=== PATIENT | female | born 1975 | race Caucasian/White ===

== ENCOUNTER → 2018-06-02 | Outpatient (CLI) | payer OTHER ==
--- NOTE | 2018-06-02 15:53 | RAD ---
3 view study of the second digit of the left hand Clinical indications: Injury and swelling. FINDINGS: No acute fracture or dislocation or osteolytic process is seen. IMPRESSION: No acute osseous abnormality. Electronically signed by: Isidro Pineda MD (06/02/2018 3:49 PM) [facility]
== END | disposition home or self-care (01) ==
LOC: PMG 09:37
PROVIDERS: ATTEND Physician Assistant
DX: S69.82XA Other specified injuries of left wrist, hand and finger(s), initial encounter (principal); M79.89 Other specified soft tissue disorders; X58.XXXA Exposure to other specified factors, initial encounter; Y93.89 Activity, other specified; Y92.89 Other specified places as the place of occurrence of the external cause; Y99.8 Other external cause status
CPT/HCPCS: 73140

== ENCOUNTER → 2019-07-30 | Outpatient (CLI) | payer OTHER ==
[2019-07-30 08:50] LABS: BASO % 1 % (0-3); EOS # 0.1 x10^3/uL (0.0-0.7); EOS % 1 % (0-3); HEMATOCRIT 41.4 % (36.0-47.0); HEMOGLOBIN 13.9 g/dL (12.0-15.5); LYMPH # 1.2 x10^3/uL (1.0-4.8); LYMPH % 23 % (24-48); MEAN CORPUSCULAR HEMOGLOBIN 34 pg (25-35); MEAN CORPUSCULAR HGB CONC 34 g/dL (31-37); MEAN CORPUSCULAR VOLUME 100 fL (79-100); MONO # 0.3 x10^3/uL (0.0-1.1); MONO % 6 % (0-9); NEUT # 3.4 x10^3uL (1.8-7.7); NEUT % 69 % (31-73); PLATELET COUNT 274 x10^3/uL (140-400); RED BLOOD COUNT 4.14 x10^6/uL (3.50-5.40); RED CELL DISTRIBUTION WIDTH 12.8 % (11.5-14.5)
[2019-07-30 09:09] LABS: ALBUMIN 4.1 g/dL (3.4-5.0); ALBUMIN/GLOBULIN RATIO 1.3 (1.0-1.7); CALCIUM 8.9 mg/dL (8.5-10.1); CREATININE 1.1 mg/dL (0.6-1.0); GFR 54.5; POTASSIUM 3.9 mmol/L (3.5-5.1); TOTAL BILIRUBIN 0.9 mg/dL (0.2-1.0); TOTAL PROTEIN 7.2 g/dL (6.4-8.2)
== END | disposition home or self-care (01) ==
LOC: PMG 07:47
PROVIDERS: ATTEND Family Medicine
DX: K92.1 Melena (principal)
CPT/HCPCS: 36415; 80053; 85025

== ENCOUNTER → 2019-08-02 | Outpatient (CLI) | payer OTHER ==
[~2019-08-02] MED LIST: IOHEXOL 240 MG/ML 50ML VIAL. ONE; IOHEXOL 240 MG/ML 50ML VIAL. PO ONE; IOHEXOL 300 MG/ML 75 ML VIAL. IV ONE
--- NOTE | 2019-08-02 11:11 | RAD ---
Examination: CT ABD PELV W/ORAL IV CONTRAST History: Nausea, vomiting, bloody stools Comparison/Correlation: None Findings: Axial images of the abdomen and pelvis were obtained following IV and oral contrast. Visualized lung bases are clear. Liver, spleen, pancreas, adrenal glands, and left kidney are normal. Right hydronephrosis and hydroureter are minimal without radiopaque obstructive lesion. Left collecting system is unremarkable. No bowel obstruction or extraluminal gas. No inflammatory changes about the cecum. Umbilical hernia containing omental fat. Circumferential wall thickening of the distal sigmoid colon and rectum is noted. Surrounding stranding is present. No loculated collection. Minimal diverticulosis is present. Bilateral fallopian tube implants are noted. Septated left adnexal cyst is present measuring up to 2.7 cm diameter. Degenerative views of the lumbar spine noted. Minimal retrolisthesis of L4 in relation to L5 is noted with concentric disc bulge. Concentric disc bulge at L5-S1 noted. Spinal canal stenosis at L5-S1 is present. Impression: Circumferential wall thickening and inflammatory changes involving the distal sigmoid colon or proximal rectum. Findings are concerning for colitis or possibly diverticulitis. No significant diverticulosis is seen however. No abscess collection or extraluminal gas. Septated left adnexal cyst. This is likely etiology. Consider interval follow-up in 16-20 weeks by ultrasound exam to assess stability. PQRS Compliance Statement: One or more of the following individualized dose reduction techniques were utilized for this examination: 1. Automated exposure control 2. Adjustment of the mA and/or kV according to patient size 3. Use of iterative reconstruction technique Electronically signed by: Danny Artis MD (08/02/2019 11:08 AM) [facility]
== END | disposition home or self-care (01) ==
LOC: CT 09:30
PROVIDERS: ATTEND Family Medicine
DX: K57.30 Diverticulosis of large intestine without perforation or abscess without bleeding (principal); N13.30 Unspecified hydronephrosis; N13.4 Hydroureter; K42.9 Umbilical hernia without obstruction or gangrene; E27.8 Other specified disorders of adrenal gland; M48.07 Spinal stenosis, lumbosacral region; M47.816 Spondylosis without myelopathy or radiculopathy, lumbar region
CPT/HCPCS: 74177; Q9966; Q9967

== ENCOUNTER → 2019-09-28 | Outpatient (CLI) | payer OTHER ==
[2019-09-28 12:28] LABS: BASO % 1 % (0-3); EOS % 0 % (0-3); HEMATOCRIT 42.9 % (36.0-47.0); HEMOGLOBIN 14.4 g/dL (12.0-15.5); LYMPH # 1.2 x10^3/uL (1.0-4.8); LYMPH % 22 % (24-48); MEAN CORPUSCULAR HEMOGLOBIN 33 pg (25-35); MEAN CORPUSCULAR HGB CONC 34 g/dL (31-37); MEAN CORPUSCULAR VOLUME 98 fL (79-100); MONO # 0.3 x10^3/uL (0.0-1.1); MONO % 6 % (0-9); NEUT # 3.8 x10^3uL (1.8-7.7); NEUT % 71 % (31-73); PLATELET COUNT 276 x10^3/uL (140-400); RED BLOOD COUNT 4.39 x10^6/uL (3.50-5.40); RED CELL DISTRIBUTION WIDTH 12.5 % (11.5-14.5); WHITE BLOOD COUNT 5.4 x10^3/uL (4.0-11.0)
[2019-09-28 12:38] LABS: ALBUMIN 4.1 g/dL (3.4-5.0); ALBUMIN/GLOBULIN RATIO 1.2 (1.0-1.7); CALCIUM 8.8 mg/dL (8.5-10.1); CREATININE 0.8 mg/dL (0.6-1.0); GFR 78.7; POTASSIUM 3.4 mmol/L (3.5-5.1); TOTAL BILIRUBIN 0.7 mg/dL (0.2-1.0); TOTAL PROTEIN 7.4 g/dL (6.4-8.2)
== END | disposition home or self-care (01) ==
LOC: PMG 11:12
PROVIDERS: ATTEND Family Medicine
DX: C18.9 Malignant neoplasm of colon, unspecified (principal)
CPT/HCPCS: 80053; 82378; 85025

== ENCOUNTER → 2019-10-28 | Outpatient (CLI) | payer OTHER ==
[2019-10-28 12:21] LABS: BASO % 1 % (0-3); EOS % 1 % (0-3); HEMATOCRIT 39.6 % (36.0-47.0); HEMOGLOBIN 13.4 g/dL (12.0-15.5); LYMPH # 1.3 x10^3/uL (1.0-4.8); LYMPH % 28 % (24-48); MEAN CORPUSCULAR HEMOGLOBIN 32 pg (25-35); MEAN CORPUSCULAR HGB CONC 34 g/dL (31-37); MEAN CORPUSCULAR VOLUME 96 fL (79-100); MONO # 0.3 x10^3/uL (0.0-1.1); MONO % 7 % (0-9); NEUT # 2.9 x10^3uL (1.8-7.7); NEUT % 64 % (31-73); PLATELET COUNT 297 x10^3/uL (140-400); RED BLOOD COUNT 4.14 x10^6/uL (3.50-5.40); RED CELL DISTRIBUTION WIDTH 12.6 % (11.5-14.5); WHITE BLOOD COUNT 4.6 x10^3/uL (4.0-11.0)
[2019-10-28 12:25] LABS: ALBUMIN 4.1 g/dL (3.4-5.0); ALBUMIN/GLOBULIN RATIO 1.5 (1.0-1.7); CALCIUM 8.8 mg/dL (8.5-10.1); CREATININE 0.9 mg/dL (0.6-1.0); GFR 68.7; POTASSIUM 3.8 mmol/L (3.5-5.1); TOTAL BILIRUBIN 0.7 mg/dL (0.2-1.0); TOTAL PROTEIN 6.9 g/dL (6.4-8.2)
== END | disposition home or self-care (01) ==
LOC: LAB 11:11
PROVIDERS: ATTEND Internal Medicine Hematology & Oncology
DX: C18.7 Malignant neoplasm of sigmoid colon (principal)
CPT/HCPCS: 36415; 80053; 82378; 85025

== ENCOUNTER → 2019-12-03 | Outpatient (CLI) | payer OTHER ==
[2019-12-03 13:12] LABS: BASO % 0 % (0-3); EOS # 0.1 x10^3/uL (0.0-0.7); EOS % 1 % (0-3); HEMATOCRIT 38.4 % (36.0-47.0); HEMOGLOBIN 13.1 g/dL (12.0-15.5); LYMPH # 1.9 x10^3/uL (1.0-4.8); LYMPH % 17 % (24-48); MEAN CORPUSCULAR HEMOGLOBIN 32 pg (25-35); MEAN CORPUSCULAR HGB CONC 34 g/dL (31-37); MEAN CORPUSCULAR VOLUME 95 fL (79-100); MONO # 0.4 x10^3/uL (0.0-1.1); MONO % 4 % (0-9); NEUT # 8.4 x10^3uL (1.8-7.7); NEUT % 78 % (31-73); PLATELET COUNT 174 x10^3/uL (140-400); RED BLOOD COUNT 4.04 x10^6/uL (3.50-5.40); RED CELL DISTRIBUTION WIDTH 13.3 % (11.5-14.5); WHITE BLOOD COUNT 10.8 x10^3/uL (4.0-11.0)
[2019-12-03 13:26] LABS: ALBUMIN 4.1 g/dL (3.4-5.0); ALBUMIN/GLOBULIN RATIO 1.5 (1.0-1.7); CALCIUM 8.5 mg/dL (8.5-10.1); CREATININE 0.9 mg/dL (0.6-1.0); GFR 68.7; POTASSIUM 3.2 mmol/L (3.5-5.1); TOTAL BILIRUBIN 0.3 mg/dL (0.2-1.0); TOTAL PROTEIN 6.8 g/dL (6.4-8.2)
[2019-12-03 13:52] LABS: % BANDS 16 % (0-9); % BASOS 0 % (0-3); % EOS 1 % (0-5); % LYMPHS 21 % (24-48); % MONOS 5 % (0-10); % PROS 6 % (0-0); % SEGS 51 % (35-66); PLT ESTIMATE ADEQUATE (ADEQUATE)
[2019-12-03 13:53] LABS: PLATELET CLUMP PRESENT
== END | disposition home or self-care (01) ==
LOC: LAB 12:44
PROVIDERS: ATTEND Internal Medicine Hematology & Oncology
DX: C18.7 Malignant neoplasm of sigmoid colon (principal)
CPT/HCPCS: 36415; 80053; 82378; 85007; 85025

== ENCOUNTER → 2020-01-14 | Outpatient (CLI) | payer OTHER ==
[2020-01-07 13:02] VITALS: BP 121/63
[2020-01-14 13:47] LABS: BASO # 0.1 x10^3/uL (0.0-0.2); BASO % 1 % (0-3); EOS % 0 % (0-3); HEMATOCRIT 36.5 % (36.0-47.0); HEMOGLOBIN 12.3 g/dL (12.0-15.5); LYMPH # 1.5 x10^3/uL (1.0-4.8); LYMPH % 15 % (24-48); MEAN CORPUSCULAR HEMOGLOBIN 32 pg (25-35); MEAN CORPUSCULAR HGB CONC 34 g/dL (31-37); MEAN CORPUSCULAR VOLUME 95 fL (79-100); MONO # 0.8 x10^3/uL (0.0-1.1); MONO % 8 % (0-9); NEUT # 7.5 x10^3uL (1.8-7.7); NEUT % 76 % (31-73); PLATELET COUNT 69 x10^3/uL (140-400); RED BLOOD COUNT 3.83 x10^6/uL (3.50-5.40); RED CELL DISTRIBUTION WIDTH 16.7 % (11.5-14.5); WHITE BLOOD COUNT 9.9 x10^3/uL (4.0-11.0)
[2020-01-14 14:01] LABS: ALBUMIN 3.9 g/dL (3.4-5.0); ALBUMIN/GLOBULIN RATIO 1.3 (1.0-1.7); CALCIUM 8.7 mg/dL (8.5-10.1); CREATININE 0.7 mg/dL (0.6-1.0); GFR 91.8; POTASSIUM 3.2 mmol/L (3.5-5.1); TOTAL BILIRUBIN 0.4 mg/dL (0.2-1.0); TOTAL PROTEIN 6.9 g/dL (6.4-8.2)
[2020-01-14 14:49] LABS: % ATYL 3 % (0-0); % BANDS 5 % (0-9); % LYMPHS 18 % (24-48); % METAS 1 % (0-0); % MONOS 4 % (0-10); % SEGS 69 % (35-66)
[2020-01-14 14:51] LABS: PLT ESTIMATE DECREASED (ADEQUATE); TOXIC GRANULATION PRESENT; TOXIC VACUOLATION PRESENT
[2020-01-14 14:52] LABS: POLYCHROMASIA PRESENT; TEAR DROP CELLS FEW
== END ==
LOC: LAB 12:53
PROVIDERS: ATTEND Internal Medicine Hematology & Oncology
DX: C18.7 Malignant neoplasm of sigmoid colon (principal)
CPT/HCPCS: 36415; 80053; 82378; 85007; 85025

== ENCOUNTER → 2020-01-17 | Outpatient (CLI) | payer OTHER ==
[2020-01-07 13:02] VITALS: BP 121/63
[2020-01-17 13:01] LABS: BASO % 0 % (0-3); EOS % 0 % (0-3); HEMATOCRIT 34.4 % (36.0-47.0); HEMOGLOBIN 11.5 g/dL (12.0-15.5); LYMPH # 1.8 x10^3/uL (1.0-4.8); LYMPH % 13 % (24-48); MEAN CORPUSCULAR HEMOGLOBIN 32 pg (25-35); MEAN CORPUSCULAR HGB CONC 34 g/dL (31-37); MEAN CORPUSCULAR VOLUME 96 fL (79-100); MONO # 0.9 x10^3/uL (0.0-1.1); MONO % 6 % (0-9); NEUT # 11.8 x10^3uL (1.8-7.7); NEUT % 81 % (31-73); PLATELET COUNT 63 x10^3/uL (140-400); RED BLOOD COUNT 3.57 x10^6/uL (3.50-5.40); RED CELL DISTRIBUTION WIDTH 16.9 % (11.5-14.5); WHITE BLOOD COUNT 14.5 x10^3/uL (4.0-11.0)
[2020-01-17 15:14] LABS: % BANDS 5 % (0-9); % LYMPHS 9 % (24-48); % METAS 2 % (0-0); % MONOS 7 % (0-10); % MYELOS 1 % (0-0); % SEGS 76 % (35-66)
[2020-01-17 15:16] LABS: PLT ESTIMATE DECREASED (ADEQUATE)
== END | disposition home or self-care (01) ==
LOC: LAB 12:19
PROVIDERS: ATTEND Internal Medicine Hematology & Oncology
DX: C18.7 Malignant neoplasm of sigmoid colon (principal)
CPT/HCPCS: 36415; 85007; 85025

== ENCOUNTER → 2020-01-19 | Outpatient (CLI) | payer OTHER ==
[2020-01-07 13:02] VITALS: BP 121/63
[~2020-01-19] MED LIST changes: -IOHEXOL 240 MG/ML 50ML VIAL. PO ONE
--- NOTE | 2020-01-19 09:33 | RAD ---
Examination: CT CHEST ABD PELVIS W/CONTRAST History: Colon cancer follow-up. Elevated liver function enzymes. Comparison/Correlation: 08/02/2019 CT abdomen and pelvis with IV and oral contrast, 10/31/2019 CT chest, abdomen, pelvis with contrast Findings: Axial images of the chest, abdomen, and pelvis were obtained following IV contrast. Sagittal and coronal reformatted images were provided. Oral contrast was administered. Left-sided infusion port catheter tip terminates within the superior vena cava. Right thyroid lower pole low-attenuation lesion which is small in size is stable. No enlarged thoracic lymph nodes. Small groundglass opacity at the anterior aspect of the right upper subcarinal region measuring up to 2 cm x 1.2 cm is present without significant change. Posterior to the left hilum, there is a 0.9 cm x 0.54 cm mildly spiculated nodule which has decreased in size since 10/29/2019 CT by 0.45 cm in the transverse plane and decreased by 0.35 cm anteroposterior. Right posterior midthoracic pleural-based nodule measuring 0.3 cm diameter is present on axial image 61 and this is decreased by 0.15 cm since 10/29/2019. Punctate pleural-based nodule which may have constipation with evidence present more inferiorly on axial image 80 and since has remained stable. 0.4 cm diameter nodule on axial image 84 is stable. Punctate pulmonary nodules previously described are stable. No new pulmonary nodule or mass. No infiltrate or effusion. No enlarged thoracic lymph nodes. The tracheobronchial tree is unremarkable. There is, pancreas, adrenal glands, and kidneys are normal. No large abdominal or pelvic lymph nodes. Spleen has a longitudinal length of 12.3 cm and this is increased in size since previous exam of 4 cm. No focal mass identified. No enlarged abdominal lymph nodes. No ascites or pelvic fluid. Right periumbilical hernia defect containing omental fat is present small defect measuring 0.6 cm transverse involving the right paraumbilical ventral wall noted. Large quantity of stool is present in the colon. No bowel obstruction. No extraluminal gas. Bilateral adnexal follicles are present including on the right with appearance of a septated follicle measuring 2.5 cm x 2.1 cm. Single thin septation appears to be present. Uterus is unremarkable. Bilateral fallopian tube implants are evident. Impression: Decreased size of pulmonary nodules. No suspicious new nodule or mass. No new infiltrate. Groundglass opacity anterior right upper lung field is stable. Attention on interval follow-up examination is recommended to assess stability. Increased size of the spleen and the interval. No focal mass. The spleen is not especially enlarged. Correlation clinically required. Small right periumbilical hernia is omental. Right adnexal cyst with thin septation is present in the interval. This may physiologic. Left adnexal septated cyst as decrease in size or resolved since 07/30/2019. Consider interval follow-up ultrasound in 16 weeks to assess to assess stability.. PQRS Compliance Statement: One or more of the following individualized dose reduction techniques were utilized for this examination: 1. Automated exposure control 2. Adjustment of the mA and/or kV according to patient size 3. Use of iterative reconstruction technique Electronically signed by: Danny Artis MD (01/19/2020 9:31 AM) [id number]
== END | disposition home or self-care (01) ==
LOC: CT 07:18
PROVIDERS: ATTEND Internal Medicine Hematology & Oncology
DX: C18.7 Malignant neoplasm of sigmoid colon (principal); K42.9 Umbilical hernia without obstruction or gangrene; R91.8 Other nonspecific abnormal finding of lung field; N83.8 Other noninflammatory disorders of ovary, fallopian tube and broad ligament
CPT/HCPCS: 71260; 74177; Q9967

== ENCOUNTER → 2020-01-24 | Outpatient (CLI) | payer OTHER ==
[2020-01-07 13:02] VITALS: BP 121/63
[2020-02-10 07:44] LABS: HEMATOCRIT 37.7 % (36.0-47.0); HEMOGLOBIN 12.5 g/dL (12.0-15.5); MEAN CORPUSCULAR HEMOGLOBIN 33 pg (25-35); MEAN CORPUSCULAR HGB CONC 33 g/dL (31-37); MEAN CORPUSCULAR VOLUME 98 fL (79-100); PLATELET COUNT 163 x10^3/uL (140-400); RED BLOOD COUNT 3.84 x10^6/uL (3.50-5.40); RED CELL DISTRIBUTION WIDTH 17.8 % (11.5-14.5); WHITE BLOOD COUNT 5.9 x10^3/uL (4.0-11.0)
[2020-02-10 07:45] LABS: BASO # 0.1 x10^3/uL (0.0-0.2); BASO % 1 % (0-3); EOS % 0 % (0-3); LYMPH # 1.3 x10^3/uL (1.0-4.8); LYMPH % 21 % (24-48); MONO # 0.6 x10^3/uL (0.0-1.1); MONO % 10 % (0-9); NEUT % 68 % (31-73)
[2020-02-10 07:54] LABS: ALBUMIN 3.6 g/dL (3.4-5.0); CREATININE 0.8 mg/dL (0.6-1.0); GFR 78.7; POTASSIUM 3.9 mmol/L (3.5-5.1); TOTAL BILIRUBIN 0.5 mg/dL (0.2-1.0); TOTAL PROTEIN 7.2 g/dL (6.4-8.2)
== END | disposition home or self-care (01) ==
LOC: LAB 08:40
PROVIDERS: ATTEND Internal Medicine Hematology & Oncology
DX: C18.7 Malignant neoplasm of sigmoid colon (principal)
CPT/HCPCS: 36415; 80053; 85025

== ENCOUNTER → 2020-01-24 | Outpatient (CLI) | payer OTHER ==
[2020-01-07 13:02] VITALS: BP 121/63
--- NOTE | 2020-01-24 08:58 | RAD ---
EXAM: CHEST PA LATERAL INDICATION: Chest congestion. Undergoing treatment for colon cancer.. TECHNIQUE: PA and lateral views COMPARISON: Chest CT of 01/19/2020 FINDINGS: Stable tunneled left subclavian chest port. The heart size is normal. The great vessels appear unremarkable. There is no hilar or mediastinal mass. The lungs are clear. There is no pleural effusion or pneumothorax. There are no significant osseous abnormalities. IMPRESSION: No active cardiopulmonary disease. Electronically signed by: Rani Rojas MD (01/24/2020 8:55 AM) [id number]
== END ==
LOC: PMG 08:15
PROVIDERS: ATTEND Physician Assistant Medical
DX: R09.89 Other specified symptoms and signs involving the circulatory and respiratory systems (principal)
CPT/HCPCS: 71046

== ENCOUNTER → 2020-06-20 | Outpatient (CLI) | payer OTHER ==
[2020-01-07 13:02] VITALS: BP 121/63
[~2020-06-20] MED LIST changes: +IOHEXOL 240 MG/ML 50ML VIAL. PO ONE
--- NOTE | 2020-06-20 10:59 | RAD ---
CT CHEST ABD PELVIS W/CONTRAST Indication: Colon cancer, colon resection in 2019 Technique: Postcontrast CT imaging was performed of the chest, abdomen, pelvis, multiplanar reconstruction images submitted. Oral contrast was also given. One or more of the following individualized dose reduction techniques were utilized for this examination: 1. Automated exposure control 2. Adjustment of the mA and/or kV according to patient size 3. Use of iterative reconstruction technique. Comparison: January 19, 2020 CHEST: Findings: Dominant spiculated noncalcified superior left lower lobe nodule image 52 series 4 is larger up to 1.3 cm versus previously about 0.8 cm. There are multiple other smaller noncalcified bilateral pulmonary nodules, multiple new nodules in interval. Dominant subpleural right lower lobe nodule about 1 cm image 63 series 4 previously measured about 0.8 cm. 0.8 cm right lower lobe nodule image 79 previously measured about 0.4 cm. There is no pericardial or pleural fluid or pneumothorax. There is no lobar infiltrate. Thoracic aortic caliber is within normal limits, no dissection flap. There are small mediastinal nodes as seen previously. There is left subclavian port catheter, tip coursing into the superior vena cava. IMPRESSION: 1. There are larger and new pulmonary nodules of the bilateral hemithoraces, evidence of metastatic disease. Abdomen pelvis FINDINGS: Spleen is again enlarged although now more heterogeneous in appearance. As seen on image 18 series 7, there is a small 0.4 cm hypodense lesion of the left lobe of the liver not clearly identified on previous exam. There is also focus of subtle hypodensity of the left lobe of liver anterior to the gallbladder fossa such as seen on coronal image 17 series 8, sagittal image 68 series 9, and axial image 38 series 7 measuring about 1.5 cm transverse by 1.2 cm AP by 1.1 cm cc. There is no adrenal nodularity. No new abnormality is identified of the pancreas. Both kidneys enhance, no hydronephrosis. Gallbladder is present without intraluminal abnormality T2. There is fairly prominent retained stool of the mid transverse colon through the descending and sigmoid colon. There is increased heterogeneity and enlargement of the left ovary also with areas of associated cystic change, largest focus of cystic change estimated about 2.9 cm. There is also small hypodense lesion of the right ovary about 1.6 m although stable to less apparent. There are tubal occlusion devices bilaterally. There is fascial defect near the umbilicus about 3.9 cm transverse, also extent of small fat-containing hernia to the right of the umbilicus with neck about 0.5 cm transverse without internal bowel. There is L4-5 degenerative disc disease with vacuum phenomenon. There is very minimal posterior subluxation L4 relative to L5, also disc osteophyte complex and bulge at this level. There is multilevel lumbar facet degenerative change. There is degree of lateral recess stenosis bilaterally at L4-5. There is at least moderate narrowing of the right L4-5 and L5-S1 neural foramina mostly from facets. IMPRESSION: 1.There are now some subtle hypodense foci of the liver concerning for hepatic metastases especially given the new and larger lung nodules. 2. There is increased heterogeneity and enlargement of the left ovary with areas of cystic change although foci of solid density, ovarian mass possible. 3. There is again enlargement of the spleen, now more heterogeneous appearance, cannot exclude underlying mass. 4. There is small fat-containing periumbilical hernia. Electronically signed by: Alfa Sloan MD (06/20/2020 10:56 AM) [id number]
== END | disposition home or self-care (01) ==
LOC: CT 07:51
PROVIDERS: ATTEND Internal Medicine Hematology & Oncology
DX: C18.9 Malignant neoplasm of colon, unspecified (principal); R91.8 Other nonspecific abnormal finding of lung field; R16.1 Splenomegaly, not elsewhere classified; K76.9 Liver disease, unspecified; M47.816 Spondylosis without myelopathy or radiculopathy, lumbar region; M48.061 Spinal stenosis, lumbar region without neurogenic claudication; M51.36 Other intervertebral disc degeneration, lumbar region; M25.78 Osteophyte, vertebrae; N83.292 Other ovarian cyst, left side; N83.8 Other noninflammatory disorders of ovary, fallopian tube and broad ligament; K42.9 Umbilical hernia without obstruction or gangrene; Z90.49 Acquired absence of other specified parts of digestive tract
CPT/HCPCS: 71260; 74177; Q9966; Q9967

== ENCOUNTER → 2020-08-11 | Outpatient (CLI) | payer OTHER ==
[2020-01-07 13:02] VITALS: BP 121/63
== END | disposition home or self-care (01) ==
LOC: LAB 15:01
PROVIDERS: ATTEND Internal Medicine Cardiovascular Disease
DX: R19.7 Diarrhea, unspecified (principal); Z20.828 Contact with and (suspected) exposure to other viral communicable diseases
CPT/HCPCS: U0003-CS

== ENCOUNTER → 2020-09-19 | Outpatient (CLI) | payer OTHER ==
[2020-01-07 13:02] VITALS: BP 121/63
[~2020-09-19] MED LIST changes: -IOHEXOL 240 MG/ML 50ML VIAL. PO ONE
--- NOTE | 2020-09-19 18:03 | RAD ---
EXAM: CT CHEST, ABDOMEN, AND PELVIS WITH CONTRAST INDICATION: Colon cancer, restaging. COMPARISON: CT chest abdomen and pelvis 06/20/[address] abdomen pelvis 09/12/2020 TECHNIQUE: Helical CT imaging performed of the chest, abdomen and pelvis after the administration of 75 mL Omnipaque 300 intravenous contrast. Sagittal and coronal reformats were obtained. One or more of the following individualized dose reduction techniques were utilized for this examination: 1. Automated exposure control 2. Adjustment of the mA and/or kV according to patient size 3. Use of iterative reconstruction technique. FINDINGS: CHEST: Thyroid gland and thoracic inlet: Normal. Heart and great vessels: The heart is normal in size. Thoracic aorta is normal in caliber. Pulmonary arteries are clear. Mediastinum and mirlande: No lymphadenopathy. Lungs and pleura: Multiple bilateral pulmonary nodules are redemonstrated. The largest is a 1.2 cm pulmonary nodule in the superior segment of the left lower lobe, unchanged. Most of the other nodules range in size from 3 to 7 mm and are unchanged. No definite new pulmonary nodules. No pleural effusion. Chest wall and axillae: Unremarkable. No axillary lymphadenopathy.. Bones: No acute osseous abnormality in the chest. ABDOMEN AND PELVIS: Liver: The vague, approximately 1.2 cm linear hypodensity in segment 4 of the liver is unchanged and nonspecific. No new liver lesion. Hepatic, portal, superior mesenteric, and splenic veins are patent. Gallbladder/Biliary Tree: Normal. Pancreas: Carlos. Spleen: Normal. Adrenal Glands: Normal. Kidneys/Ureters/Bladder: Kidneys are normal in size and enhance symmetrically. No hydronephrosis. The proximal and mid ureters are normal. Left distal ureter is not well visualized. The bladder is decompressed. Reproductive Organs: Uterus is normal. A multilobulated left adnexal mass has increased in size, now measuring overall approximately 14.5 x 11.1 x 8.8 cm, previously 10.0 x 6.8 x 7.4 cm. The largest component of this is cystic and homogeneous in appearance. A more heterogeneous complex component of the mass posteriorly on the left appears to have areas of enhancing soft tissue versus hemorrhage. The right ovary is grossly normal in appearance. Stomach, small bowel, and colon: There are surgical changes of the rectum. The rest of the colon is normal in appearance. Stomach and small bowel are normal. Vasculature: Abdominal aorta and inferior vena cava are normal. Lymph Nodes: No lymphadenopathy. Peritoneum and retroperitoneum: Decreased ascites, with residual trace free fluid in the pelvis. Bones: No acute osseous abnormality there is degenerative disc disease and minimal listhesis at L4-L5. IMPRESSION: 1. Increased size of multilobulated complex cystic and solid left adnexal mass, now approximately 15 cm in diameter. There may be hemorrhagic components within the mass. This could be metastatic disease versus primary malignancy. 2. Unchanged bilateral pulmonary nodules. No new metastatic disease in the abdomen and pelvis. 3. Decreased, now trace fluid in the abdomen and pelvis. Electronically signed by: Paige uW MD (09/19/2020 6:00 PM) [id number]
== END ==
LOC: CT 07:52
PROVIDERS: ATTEND Internal Medicine Hematology & Oncology
DX: C18.7 Malignant neoplasm of sigmoid colon (principal); R91.8 Other nonspecific abnormal finding of lung field; M51.36 Other intervertebral disc degeneration, lumbar region; R18.8 Other ascites
CPT/HCPCS: 71260; 74177; Q9967

== ENCOUNTER → 2020-09-22 | Outpatient (CLI) | payer OTHER ==
[2020-01-07 13:02] VITALS: BP 121/63
[2020-09-23 05:08] LABS: CA 125 302.3 U/mL (0.0-38.1)
== END ==
LOC: LAB 12:59
PROVIDERS: ATTEND Obstetrics & Gynecology
DX: N83.8 Other noninflammatory disorders of ovary, fallopian tube and broad ligament (principal)
CPT/HCPCS: 36415; 86301; 86304; 86305

== ENCOUNTER → 2020-12-27 | Outpatient (CLI) | payer OTHER ==
[2020-01-07 13:02] VITALS: BP 121/63
[2020-12-27 13:54] LABS: BASO % 1 % (0-3); EOS % 1 % (0-3); HEMATOCRIT 40.4 % (36.0-47.0); HEMOGLOBIN 13.5 g/dL (12.0-15.5); LYMPH # 1.5 x10^3/uL (1.0-4.8); LYMPH % 39 % (24-48); MEAN CORPUSCULAR HEMOGLOBIN 32 pg (25-35); MEAN CORPUSCULAR HGB CONC 33 g/dL (31-37); MEAN CORPUSCULAR VOLUME 95 fL (79-100); MONO # 0.3 x10^3/uL (0.0-1.1); MONO % 8 % (0-9); NEUT # 1.9 x10^3uL (1.8-7.7); NEUT % 51 % (31-73); PLATELET COUNT 200 x10^3/uL (140-400); RED BLOOD COUNT 4.25 x10^6/uL (3.50-5.40); RED CELL DISTRIBUTION WIDTH 15.1 % (11.5-14.5); WHITE BLOOD COUNT 3.8 x10^3/uL (4.0-11.0)
[2020-12-27 14:24] LABS: ALBUMIN 4.4 g/dL (3.4-5.0); ALBUMIN/GLOBULIN RATIO 1.3 (1.0-1.7); CALCIUM 9.2 mg/dL (8.5-10.1); CREATININE 0.9 mg/dL (0.6-1.0); GFR 68.3; POTASSIUM 3.8 mmol/L (3.5-5.1); TOTAL BILIRUBIN 0.7 mg/dL (0.2-1.0); TOTAL PROTEIN 7.7 g/dL (6.4-8.2)
== END ==
LOC: LAB 12:48
PROVIDERS: ATTEND Internal Medicine Hematology & Oncology
DX: C18.7 Malignant neoplasm of sigmoid colon (principal); E55.9 Vitamin D deficiency, unspecified
CPT/HCPCS: 80053; 82306; 82378; 85025

== ENCOUNTER → 2021-01-25 | Outpatient (CLI) | payer OTHER ==
[2020-01-07 13:02] VITALS: BP 121/63
[2021-01-25 08:54] LABS: BASO % 1 % (0-3); EOS # 0.1 x10^3/uL (0.0-0.7); EOS % 2 % (0-3); HEMATOCRIT 35.7 % (36.0-47.0); HEMOGLOBIN 12.1 g/dL (12.0-15.5); LYMPH # 1.1 x10^3/uL (1.0-4.8); LYMPH % 31 % (24-48); MEAN CORPUSCULAR HEMOGLOBIN 33 pg (25-35); MEAN CORPUSCULAR HGB CONC 34 g/dL (31-37); MEAN CORPUSCULAR VOLUME 97 fL (79-100); MONO # 0.3 x10^3/uL (0.0-1.1); MONO % 8 % (0-9); NEUT # 2.2 x10^3uL (1.8-7.7); NEUT % 59 % (31-73); PLATELET COUNT 174 x10^3/uL (140-400); RED BLOOD COUNT 3.68 x10^6/uL (3.50-5.40); WHITE BLOOD COUNT 3.7 x10^3/uL (4.0-11.0)
[2021-01-25 09:02] LABS: CALCIUM 8.9 mg/dL (8.5-10.1); CREATININE 0.9 mg/dL (0.6-1.0); GFR 68.3; POTASSIUM 3.9 mmol/L (3.5-5.1)
[2021-01-25 09:07] LABS: ALBUMIN 3.7 g/dL (3.4-5.0); ALBUMIN/GLOBULIN RATIO 1.2 (1.0-1.7); TOTAL BILIRUBIN 0.7 mg/dL (0.2-1.0); TOTAL PROTEIN 6.7 g/dL (6.4-8.2)
== END ==
LOC: LAB 08:13
PROVIDERS: ATTEND Internal Medicine Hematology & Oncology
DX: C18.7 Malignant neoplasm of sigmoid colon (principal)
CPT/HCPCS: 36591; 80053; 82378; 85025

== ENCOUNTER → 2021-01-25 | Outpatient (CLI) | payer OTHER ==
[~2021-01-25] MED LIST changes: +HEPARIN PF 500 UNIT/5 ML DISP.SYRIN. IVP ONE; -IOHEXOL 240 MG/ML 50ML VIAL. ONE; -IOHEXOL 300 MG/ML 75 ML VIAL. IV ONE
[2021-01-25 08:35] VITALS: BP 110/72
--- NOTE | 2021-01-25 08:36 | NUR ---
nursing note outpt pt ambulated to room 107 for outpt port flush and lab collection. vitals obtained. no complications. pt ambulated off unit. january radford.
== END | disposition home or self-care (01) ==
LOC: OPINF 08:12
PROVIDERS: ATTEND Internal Medicine Hematology & Oncology
DX: Z45.2 Encounter for adjustment and management of vascular access device (principal); C18.7 Malignant neoplasm of sigmoid colon
CPT/HCPCS: 96374; 96523

== ENCOUNTER → 2021-02-14 | Outpatient (CLI) | payer OTHER ==
[2020-01-07 13:02] VITALS: BP 121/63
[2021-02-14 14:23] LABS: BASO % 1 % (0-3); EOS # 0.1 x10^3/uL (0.0-0.7); EOS % 2 % (0-3); HEMATOCRIT 35.4 % (36.0-47.0); LYMPH # 1.6 x10^3/uL (1.0-4.8); LYMPH % 41 % (24-48); MEAN CORPUSCULAR HEMOGLOBIN 34 pg (25-35); MEAN CORPUSCULAR HGB CONC 34 g/dL (31-37); MEAN CORPUSCULAR VOLUME 100 fL (79-100); MONO # 0.3 x10^3/uL (0.0-1.1); MONO % 7 % (0-9); NEUT % 50 % (31-73); PLATELET COUNT 209 x10^3/uL (140-400); RED BLOOD COUNT 3.53 x10^6/uL (3.50-5.40); RED CELL DISTRIBUTION WIDTH 18.8 % (11.5-14.5); WHITE BLOOD COUNT 3.9 x10^3/uL (4.0-11.0)
[2021-02-14 16:54] LABS: ALBUMIN/GLOBULIN RATIO 1.4 (1.0-1.7); CALCIUM 9.1 mg/dL (8.5-10.1); GFR 60.5; POTASSIUM 4.2 mmol/L (3.5-5.1); TOTAL BILIRUBIN 0.4 mg/dL (0.2-1.0); TOTAL PROTEIN 6.9 g/dL (6.4-8.2)
== END ==
LOC: LAB 12:37
PROVIDERS: ATTEND Internal Medicine Hematology & Oncology
DX: C18.7 Malignant neoplasm of sigmoid colon (principal)
CPT/HCPCS: 36415; 80053; 82378; 85025

== ENCOUNTER → 2021-06-18 | Outpatient (CLI) | payer OTHER ==
[2020-01-07 13:02] VITALS: BP 121/63
[~2021-06-18] MED LIST changes: -HEPARIN PF 500 UNIT/5 ML DISP.SYRIN. IVP ONE; +IOHEXOL 240 MG/ML 50ML VIAL. ONE; +IOHEXOL 300 MG/ML 75 ML VIAL. IV ONE
[2021-06-18 10:33] LABS: ALBUMIN 4.1 g/dL (3.4-5.0); ALBUMIN/GLOBULIN RATIO 1.6 (1.0-1.7); CALCIUM 8.6 mg/dL (8.5-10.1); CREATININE 0.8 mg/dL (0.6-1.0); GFR 77.9; POTASSIUM 3.2 mmol/L (3.5-5.1); TOTAL BILIRUBIN 0.6 mg/dL (0.2-1.0); TOTAL PROTEIN 6.6 g/dL (6.4-8.2)
[2021-06-18 10:36] LABS: BASO % 1 % (0-3); EOS # 0.1 x10^3/uL (0.0-0.7); EOS % 2 % (0-3); HEMATOCRIT 37.8 % (36.0-47.0); LYMPH # 1.2 x10^3/uL (1.0-4.8); LYMPH % 40 % (24-48); MEAN CORPUSCULAR HEMOGLOBIN 32 pg (25-35); MEAN CORPUSCULAR HGB CONC 35 g/dL (31-37); MEAN CORPUSCULAR VOLUME 93 fL (79-100); MONO # 0.3 x10^3/uL (0.0-1.1); MONO % 9 % (0-9); NEUT # 1.5 x10^3uL (1.8-7.7); NEUT % 49 % (31-73); PLATELET COUNT 216 x10^3/uL (140-400); RED BLOOD COUNT 4.05 x10^6/uL (3.50-5.40); RED CELL DISTRIBUTION WIDTH 15.2 % (11.5-14.5); WHITE BLOOD COUNT 3.1 x10^3/uL (4.0-11.0)
--- NOTE | 2021-06-18 15:36 | RAD ---
EXAM: CT OF THE CHEST, ABDOMEN AND PELVIS WITH CONTRAST. HISTORY: Restaging colon cancer. TECHNIQUE: Computed tomography of the chest, abdomen and pelvis was performed after the intravenous a dministration of iodinated contrast. One or more of the following individualized dose reduction techn iques were utilized for this examination: 1. Automated exposure control. 2. Adjustment of the mA and/or kV according to patient size. 3. Use of iterative reconstruction technique. COMPARISON: 09/19/2020. FINDINGS: Bone windows reveal no suspicious lesions. A left hilar node measures 12 x 10 mm and is increased. There are no enlarged axillary or supraclavic ular nodes. There is no pleural or pericardial effusion. The heart is not enlarged. Many bilateral lung nodules are mostly slightly increased since the prior study. The largest in the l eft lower lobe posterior to the hilum measures 1.6 x 1.3 cm and may be slightly decreased. Another ex ample in the right lower lobe on image 89 measures 8 mm as compared with 6 mm. The majority measure < 5 mm. A few of the tiniest nodules appear new. A 17 mm hypoattenuating lesion in hepatic segment IVb adjacent to the falciform ligament on image 34 is new since the prior study, but is at a typical location for a benign perfusion related phenomenon. This is indeterminate. The adrenal glands, pancreas, adrenal glands, spleen and kidneys are unremarkable. There are no patho logically enlarged lymph nodes. An anastomotic suture line is noted along the rectosigmoid junction. There is no small bowel obstruct ion. The appendix is not inflamed. The uterus is surgically absent. IMPRESSION: 1. Diffuse bilateral pulmonary metastatic disease has progressed slightly since 09/19/2020. 2. A 17 mm hypoattenuating hepatic lesion is indeterminate. Attention on further follow-up. Electronically signed by: Ab Nunez MD (06/18/2021 3:34 PM) [id number]
[2021-06-18 18:54] LABS: CREATININE,RANDOM URINE 283.2 mg/dL (Not Establ.)
== END ==
LOC: CT 08:26
PROVIDERS: ATTEND Internal Medicine Hematology & Oncology
DX: C18.7 Malignant neoplasm of sigmoid colon (principal); K76.89 Other specified diseases of liver; C78.02 Secondary malignant neoplasm of left lung; C78.01 Secondary malignant neoplasm of right lung; R91.8 Other nonspecific abnormal finding of lung field
CPT/HCPCS: 36415; 71260; 74177; 80053; 82378; 82570; 84156; 85025; Q9967

== ENCOUNTER → 2021-07-30 | Outpatient (CLI) | payer OTHER ==
[2020-01-07 13:02] VITALS: BP 121/63
[2021-07-30 11:19] LABS: BASO % 0 % (0-3); EOS # 0.1 x10^3/uL (0.0-0.7); EOS % 1 % (0-3); HEMATOCRIT 37.7 % (36.0-47.0); HEMOGLOBIN 12.4 g/dL (12.0-15.5); LYMPH # 1.1 x10^3/uL (1.0-4.8); LYMPH % 20 % (24-48); MEAN CORPUSCULAR HEMOGLOBIN 31 pg (25-35); MEAN CORPUSCULAR HGB CONC 33 g/dL (31-37); MEAN CORPUSCULAR VOLUME 95 fL (79-100); MONO # 0.6 x10^3/uL (0.0-1.1); MONO % 10 % (0-9); NEUT # 3.7 x10^3uL (1.8-7.7); NEUT % 69 % (31-73); PLATELET COUNT 205 x10^3/uL (140-400); RED BLOOD COUNT 3.98 x10^6/uL (3.50-5.40); RED CELL DISTRIBUTION WIDTH 16.6 % (11.5-14.5); WHITE BLOOD COUNT 5.4 x10^3/uL (4.0-11.0)
[2021-07-30 11:22] LABS: ALBUMIN 3.5 g/dL (3.4-5.0); ALBUMIN/GLOBULIN RATIO 1.1 (1.0-1.7); CALCIUM 9.2 mg/dL (8.5-10.1); CREATININE 0.8 mg/dL (0.6-1.0); GFR 77.9; TOTAL BILIRUBIN 0.5 mg/dL (0.2-1.0); TOTAL PROTEIN 6.6 g/dL (6.4-8.2)
== END ==
LOC: LAB 09:54
PROVIDERS: ATTEND Physician Assistant
DX: C18.7 Malignant neoplasm of sigmoid colon (principal)
CPT/HCPCS: 36415; 80053; 82378; 85025

== ENCOUNTER → 2021-08-13 | Outpatient (CLI) | payer OTHER ==
[2020-01-07 13:02] VITALS: BP 121/63
[2021-08-13 14:49] LABS: BASO % 1 % (0-3); EOS % 1 % (0-3); HEMATOCRIT 37.3 % (36.0-47.0); HEMOGLOBIN 12.3 g/dL (12.0-15.5); LYMPH % 25 % (24-48); MEAN CORPUSCULAR HEMOGLOBIN 31 pg (25-35); MEAN CORPUSCULAR HGB CONC 33 g/dL (31-37); MEAN CORPUSCULAR VOLUME 95 fL (79-100); MONO # 0.4 x10^3/uL (0.0-1.1); MONO % 9 % (0-9); NEUT # 2.7 x10^3uL (1.8-7.7); NEUT % 65 % (31-73); PLATELET COUNT 225 x10^3/uL (140-400); RED BLOOD COUNT 3.93 x10^6/uL (3.50-5.40); RED CELL DISTRIBUTION WIDTH 16.1 % (11.5-14.5); WHITE BLOOD COUNT 4.1 x10^3/uL (4.0-11.0)
[2021-08-13 15:01] LABS: ALBUMIN 3.8 g/dL (3.4-5.0); ALBUMIN/GLOBULIN RATIO 1.1 (1.0-1.7); CALCIUM 9.2 mg/dL (8.5-10.1); CREATININE 0.9 mg/dL (0.6-1.0); POTASSIUM 3.7 mmol/L (3.5-5.1); TOTAL BILIRUBIN 0.4 mg/dL (0.2-1.0); TOTAL PROTEIN 7.4 g/dL (6.4-8.2)
[2021-08-14 15:09] LABS: CREATININE,RANDOM URINE 134.3 mg/dL (Not Establ.)
== END ==
LOC: LAB 13:30
PROVIDERS: ATTEND Physician Assistant
DX: C18.7 Malignant neoplasm of sigmoid colon (principal)
CPT/HCPCS: 36415; 80053; 82378; 82570; 84156; 85025

== ENCOUNTER → 2021-08-27 | Outpatient (CLI) | payer OTHER ==
[2020-01-07 13:02] VITALS: BP 121/63
[2021-08-27 14:36] LABS: ALBUMIN 3.7 g/dL (3.4-5.0); ALBUMIN/GLOBULIN RATIO 1.2 (1.0-1.7); CREATININE 0.9 mg/dL (0.6-1.0); POTASSIUM 4.1 mmol/L (3.5-5.1); TOTAL BILIRUBIN 0.4 mg/dL (0.2-1.0); TOTAL PROTEIN 6.7 g/dL (6.4-8.2)
[2021-08-27 14:38] LABS: BASO % 1 % (0-3); EOS % 1 % (0-3); HEMATOCRIT 34.9 % (36.0-47.0); HEMOGLOBIN 11.5 g/dL (12.0-15.5); LYMPH # 0.9 x10^3/uL (1.0-4.8); LYMPH % 25 % (24-48); MEAN CORPUSCULAR HEMOGLOBIN 32 pg (25-35); MEAN CORPUSCULAR HGB CONC 33 g/dL (31-37); MEAN CORPUSCULAR VOLUME 95 fL (79-100); MONO # 0.3 x10^3/uL (0.0-1.1); MONO % 9 % (0-9); NEUT # 2.4 x10^3uL (1.8-7.7); NEUT % 64 % (31-73); PLATELET COUNT 189 x10^3/uL (140-400); RED BLOOD COUNT 3.66 x10^6/uL (3.50-5.40); RED CELL DISTRIBUTION WIDTH 16.6 % (11.5-14.5); WHITE BLOOD COUNT 3.8 x10^3/uL (4.0-11.0)
[2021-08-28 14:51] LABS: CREATININE,RANDOM URINE 16.8 mg/dL (Not Establ.)
== END ==
LOC: LAB 13:32
PROVIDERS: ATTEND Internal Medicine Hematology & Oncology
DX: C18.7 Malignant neoplasm of sigmoid colon (principal)
CPT/HCPCS: 36415; 80053; 82378; 82570; 84156; 85025

== ENCOUNTER → 2021-09-20 | Outpatient (CLI) | payer OTHER ==
[2020-01-07 13:02] VITALS: BP 121/63
[~2021-09-20] MED LIST changes: +IOHEXOL 240 MG/ML 50ML VIAL. PO ONE
--- NOTE | 2021-09-20 11:40 | RAD ---
PQRS Compliance Statement: One or more of the following individualized dose reduction techniques were utilized for this examinat ion: 1. Automated exposure control 2. Adjustment of the mA and/or kV according to patient size 3. Use of iterative reconstruction technique CT CHEST+ABD+PELVIS W 09/20/2021 9:21 AM INDICATION: Adenocarcinoma the sigmoid colon COMPARISON: CT chest, abdomen and pelvis 06/18/2021, 09/19/2020 TECHNIQUE: Multiple axial CT images of the chest, abdomen and pelvis were obtained after the intraven ous administration of 75 mL Omnipaque 300. Coronal and sagittal reformats are provided. FINDINGS: Solid noncalcified pulmonary nodules measuring up to 6 mm in the left lower lobe. Stable from 1. There is a groundglass opacity in the right upper lobe measuring 3.5 cm, stable from prior examina tion. Innumerable solid noncalcified pulmonary nodules within the right lung measure up to 8 mm in th e 10 mm in the lateral right lower lobe (series 4, image 78), stable from the prior examination. No n ew or enlarging solid noncalcified pulmonary nodules. Left chest wall infusion port catheter in simil ar position. Heart size within normal limits. Cardiac and mediastinal structures are stable. Marginal decrease in size of left hilar lymph node measuring 9 mm, previously measuring 11 mm (series 4, imag e 46). No new or enlarging thoracic lymphadenopathy. Previously seen hepatic lesion within segment IV is not visualized on current examination and may hav e resolved. No new hepatic lesions. Liver, spleen, adrenal glands, pancreas, gallbladder and kidneys are normal. Anastomosis identified at the rectosigmoid junction. Small large bowel are normal in renetta liv. No bowel obstruction or inflammation. Small fat-containing suprarenal local hernia. Urinary blad ian within normal limits given degree of distention. Prostate and seminal vesicles are normal. No wu picious osseous normality is identified. IMPRESSION: 1. No new or enlarging solid noncalcified pulmonary nodules. No findings to suggest disease progressi on. Innumerable solid noncalcified pulmonary nodules are stable compatible with underlying pulmonary metastatic disease. 2. Previously seen hepatic lesion within segment IV the medial segment left hepatic lobe is not visua lized and may reflect treatment response. No new or enlarging hepatic lesions. 3. Decrease in size of a left hilar lymph node previously measuring 11 mm and currently measuring 9 m m suggestive of treatment response. 4. No suspicious adnexal mass. Electronically signed by: Heidi Palencia MD (09/20/2021 11:38 AM) [facility]
== END ==
LOC: CT 07:54
PROVIDERS: ATTEND Internal Medicine Hematology & Oncology
DX: C18.7 Malignant neoplasm of sigmoid colon (principal); R91.8 Other nonspecific abnormal finding of lung field
CPT/HCPCS: 71260; 74177; Q9966; Q9967

== ENCOUNTER → 2021-12-05 | Outpatient (CLI) | payer MEDICAID ==
[2020-01-07 13:02] VITALS: BP 121/63
--- NOTE | 2021-12-05 13:43 | RAD ---
EXAM: Chest, 2 views. HISTORY: Productive cough. Metastatic colon cancer. COMPARISON: 09/20/2021 FINDINGS: 2 views of the chest are obtained. There are multiple nodular opacities scattered throughou t both lungs, the majority of which are subcentimeter in size. This is similar compared to the compar rema CT, allowing for differences in imaging modality. There is no consolidation, pleural effusion or pneumothorax. The heart is normal in size. There is a left port catheter with the tip overlying the expected location of the superior cavoatrial junction. IMPRESSION: Multiple pulmonary nodules and nodular opacities, not appreciably changed compared to the prior CT with allowing for differences in imaging modality. This is consistent with a history of pul monary metastatic disease. The possibility of superimposed nodular infiltrate is not excluded. There is no consolidated pneumonia. Electronically signed by: Kate Lutz MD (12/05/2021 1:41 PM) [id number]
== END ==
LOC: PMG 13:19
PROVIDERS: ATTEND Nurse Practitioner Family
DX: R91.8 Other nonspecific abnormal finding of lung field (principal)
CPT/HCPCS: 71046

== ENCOUNTER → 2021-12-10 | Outpatient (CLI) | payer MEDICAID ==
[2020-01-07 13:02] VITALS: BP 121/63
[~2021-12-10] MED LIST changes: -IOHEXOL 240 MG/ML 50ML VIAL. ONE; -IOHEXOL 240 MG/ML 50ML VIAL. PO ONE; -IOHEXOL 300 MG/ML 75 ML VIAL. IV ONE; +IOHEXOL 350 MG/ML 100 ML VIAL. IV ONE
--- NOTE | 2021-12-10 10:05 | RAD ---
CTA CHEST History: Shortness of breath. Lung metastases from colon cancer. Rule out PE. Comparison: CT chest, abdomen and pelvis 09/21/2021. Technique: CTA of the pulmonary arteries with intravenous contrast. 3-D postprocessing was performed. Findings: Devices: Left chest Mediport with catheter tip terminating in the distal SVC. Pulmonary arteries: No pulmonary embolism. Aorta and great vessels: No aneurysm or dissection of the aortic arch or thoracic aorta. Thyroid: No significant abnormalities. Mediastinum and mirlande: Minimally increased from the left hilar lymph node measuring 8 mm short axis. Esophagus: The visualized esophagus is normal. Heart: The heart is normal in size. There is no pericardial effusion. Airways, Lungs, Pleura: Mild central bronchial wall thickening. Innumerable bilateral metastatic pulm onary nodules with subtle interval increases in size including 1.5 cm, previously 1.2 cm nodule at th e superior segment left lower lobe and 1.1 cm, previously 0.8 cm left lower lobe nodule. Upper abdomen: Limited evaluation of the upper abdomen is unremarkable. Osseous structures and soft tissues: Within normal limits for age. Impression: 1. No pulmonary embolism, aortic aneurysm or aortic dissection. 2. Innumerable pulmonary nodules, some of which demonstrate subtle interval increase size, concernin g for progression of metastatic disease. ------ Exposure: One or more of the following individualized dose reduction techniques were utilized for thi s examination: 1. Automated exposure control 2. Adjustment of the mA and/or kV according to patient size 3. Use of iterative reconstruction technique. Electronically signed by: Choco Mckenzie MD (12/10/2021 10:03 AM) [facility]
== END ==
LOC: CT 09:13
PROVIDERS: ATTEND Family Medicine
DX: R91.8 Other nonspecific abnormal finding of lung field (principal); J98.09 Other diseases of bronchus, not elsewhere classified
CPT/HCPCS: 71275; Q9967